=== PATIENT | female | born 1965 | race Caucasian/White ===

== ENCOUNTER → 2017-06-28 | Outpatient (CLI) | payer OTHER, SELFPAY ==
[~2017-06-28] MED LIST: ACCUNEB SO1.25 MG/1; ACETAMINOPHEN-1 EAC1 PO; ACIPHEX 20 MG T20 M1; ALBUTEROL2.5 MG/31 INH; AMOX TR-K CLV1 EAC4; AZITHROMYCIN 2250 MG; BENADRYL25 MG PO; BIRTH CONTROL; CARAFATE 1 GM TA1 GM PO; CHERATUSSIN AC118 ML; CLARITIN-D 121 EACH PO; CLARITIN10 M2; CLARITIN10 MG PO; DUONEB 2.5-0.5 M3 ML INH; FIORINAL 50-321 EACH PO; FLEXERIL PO; FUROSEMIDE 20 M20 MG PO; HYDROCODON-ACE1 EAC7 PO; HYDROCODONE-APA10 ML PO; IBUPROFEN 600600 M1 PO; IBUPROFEN 800800 M1 PO; IBUPROFEN 800800 MG PO; KLOR-CON 1010 MEQ PO; LEVOTHYROXIN0.125 M1 PO; LEVOXYL; MEDROLDOSEPACK PO; NAPROSYN500 MG PO; NORCO 5-325 TA1 EACH PO; PEPCID40 MG PO; PERCOCET 5-3251 EACH PO; PREDNISOLONE 5 M5 M1; PREDNISONE 10 M10 MG PO; PREDNISONE 20 M20 M1 PO; PREDNISONE 20 M20 MG PO; PREDNISONE50 MG PO; PREVACID15 MG PO; PRILOSEC40 MG PO; TESSALON200 MG PO; TUSSIONEX PENN473 ML PO; Tylenol; VENTOLIN HFA 1818 GM; VENTOLIN HFA 1818 GM INH; ZANTAC 150MG T150 MG PO; ZOFRAN ODT4 MG PO; ZYRTEC 10 MG TA10 MG PO
== END ==
LOC: M.ULTRA 14:15
DX: E04.1 Nontoxic single thyroid nodule (principal)

== ENCOUNTER → 2017-07-30 | Outpatient (CLI) | payer OTHER, SELFPAY | LOC: M.RAD 09:28 | DX: R05 Cough (principal); R07.89 Other chest pain ==

== ENCOUNTER → 2017-10-10 | Outpatient (CLI) | payer OTHER, SELFPAY | LOC: M.RAD 16:18 | DX: R06.02 Shortness of breath (principal) ==

== ENCOUNTER 2018-01-01 08:39 | Emergency (ER) | payer OTHER ==
[~2018-01-01] VITALS: Ht 165.1 cm; Wt 106.1 kg
[~2018-01-01 08:39] MED LIST changes: -CARAFATE 1 GM TA1 GM PO; -PREVACID15 MG PO
[2018-01-01 09:15] LABS: ABSOLUTE EOSINOPHILS 0.3 thou/uL (0.0-0.7); ABSOLUTE LYMPHOCYTES 0.8 thou/uL (0.8-5.3); ABSOLUTE MONOCYTES 0.3 thou/uL (0.0-1.2); ABSOLUTE NEUTROPHILS 1.9 thou/uL (1.6-8.1); BASOPHILS 1.2 %; EOSINOPHILS 7.8 %; HEMATOCRIT 42.2 % (37.0-47.0); HEMOGLOBIN 13.8 gm/dL (12.0-15.0); LYMPHOCYTES 24.2 %; MCH 30.2 pg (26.0-34.0); MCHC 32.7 g/dL (28.0-37.0); MCV 92.3 fL (80.0-100.0); MONOCYTES 10.1 %; MPV 9.3 fl. (7.2-11.1); NUCLEATED RBCS 0 /100WBC; PLATELET COUNT* 167 thou/uL (150-400); POLYS 56.7 %; RBC 4.57 mil/uL (4.20-5.00); RDW-CV 13.7 % (10.5-14.5); WBC 3.3 thou/uL (4.0-11.0)
[2018-01-01 09:28] LABS: APTT 26.5 Seconds (25.0-31.3)
[2018-01-01 09:37] LABS: ALBUMIN 3.7 g/dL (3.4-5.0); ALKALINE PHOSPHATASE 66 U/L (46-116); ANION GAP 5 mmol/L (7-16); BUN 14 mg/dL (7-18); CALCIUM 9.4 mg/dL (8.5-10.1); CHLORIDE 106 mmol/L (98-107); CO2 29 mmol/L (21-32); CREATININE 0.9 mg/dL (0.6-1.3); GLUCOSE 73 mg/dL (70-99); NT-PRO BRAIN NAT PEPTIDE 34 pg/mL (<300); POTASSIUM 4.3 mmol/L (3.5-5.1); SGOT 19 U/L (15-37); SGPT 23 U/L (30-65); SODIUM 140 mmol/L (136-145); TOTAL BILIRUBIN 0.2 mg/dL (<0.1-1.0); TOTAL PROTEIN 7.5 g/dL (6.4-8.2); TROPONIN-I LEVEL <0.06 ng/mL (<0.06)
[2018-01-01] MEDS ORDERED: VENTOLIN HFA 1818 GM INH (09:49)
[2018-01-01 10:00] VITALS: BP 113/68
--- NOTE | 2018-01-02 12:55 | EKG ---
[place] [address] ELECTROCARDIOGRAM REPORT Name: BRAD SANCHEZ Room: [facility]#: [id number] Admission: 01/01/18 Attend Phys: Discharge: 01/01/18 Date of : 69 Report #: [id number] THIS REPORT FOR: //name// [facility] ED Test Date: 2018-01-01 Test Time: 08:53:40 Pat Name: BRAD SANCHEZ Department: Room: Gender: F Process Controls Technician: Flako FOWLER : 1965 Requested By: Balwinder Sarkar Order Number: [id number] MD: Ian Sawyer Measurements Intervals [place] Rate: 67 P: 39 [place]: 138 QRS: 32 QRSD: 115 T: 52 QT: 369 QTc: 390 Interpretive Statements Sinus rhythm Nonspecific intraventricular conduction delay Low voltage, extremity leads Compared to ECG 10/12/2016 20:04:47 Intraventricular conduction delay now present Electronically Signed On 01-02-2018 12:54:52 CDT by Ian Sawyer [email or web address] <ELECTRONICALLY SIGNED> By: Ian Sawyer MD, [facility] 01/02/18 1254 [id number] [id number] Ian Sawyer MD, FACC /EPI
== END 2018-01-01 10:01 | disposition home or self-care (01) ==
LOC: M.ERS 08:39
PROVIDERS: Family Medicine
DX: R06.02 Shortness of breath (principal); R20.0 Anesthesia of skin; J45.909 Unspecified asthma, uncomplicated; E07.9 Disorder of thyroid, unspecified; Z90.49 Acquired absence of other specified parts of digestive tract; Z90.710 Acquired absence of both cervix and uterus; Z91.02 Food additives allergy status

== ENCOUNTER → 2018-01-01 | Outpatient (CLI) | payer OTHER | LOC: M.RAD 11:23 | DX: M47.892 Other spondylosis, cervical region (principal) ==

== ENCOUNTER 2018-01-12 15:13 | Emergency (ER) | payer OTHER ==
[~2018-01-12] VITALS: Ht 165.1 cm; Wt 104.3 kg
[2018-01-12 16:11] LABS: ABSOLUTE BASOPHILS 0.1 thou/uL (0.0-0.2); ABSOLUTE EOSINOPHILS 0.4 thou/uL (0.0-0.7); ABSOLUTE MONOCYTES 0.5 thou/uL (0.0-1.2); ABSOLUTE NEUTROPHILS 2.6 thou/uL (1.6-8.1); BASOPHILS 1.5 %; HEMATOCRIT 39.6 % (37.0-47.0); HEMOGLOBIN 13.1 gm/dL (12.0-15.0); LYMPHOCYTES 22.1 %; MCH 30.4 pg (26.0-34.0); MCHC 33.2 g/dL (28.0-37.0); MCV 91.7 fL (80.0-100.0); MONOCYTES 10.2 %; MPV 9.3 fl. (7.2-11.1); NUCLEATED RBCS 0 /100WBC; PLATELET COUNT* 166 thou/uL (150-400); POLYS 58.2 %; RBC 4.32 mil/uL (4.20-5.00); RDW-CV 13.4 % (10.5-14.5); WBC 4.4 thou/uL (4.0-11.0)
[2018-01-12 16:28] LABS: ANION GAP 3 mmol/L (7-16); BUN 14 mg/dL (7-18); CALCIUM 8.9 mg/dL (8.5-10.1); CHLORIDE 106 mmol/L (98-107); CO2 29 mmol/L (21-32); CREATININE 0.9 mg/dL (0.6-1.3); GLUCOSE 82 mg/dL (70-99); SODIUM 138 mmol/L (136-145)
[2018-01-12 16:29] LABS: APTT 26.4 Seconds (25.0-31.3); PROTIME 10.2 Seconds (9.20-11.50)
[2018-01-12 16:38] LABS: ALBUMIN 3.3 g/dL (3.4-5.0); ALKALINE PHOSPHATASE 58 U/L (46-116); LIPASE 91 U/L (73-393); NT-PRO BRAIN NAT PEPTIDE 40 pg/mL (<300); SGOT 18 U/L (15-37); SGPT 22 U/L (30-65); TOTAL BILIRUBIN 0.4 mg/dL (<0.1-1.0); TOTAL PROTEIN 6.7 g/dL (6.4-8.2); TROPONIN-I LEVEL <0.06 ng/mL (<0.06)
[2018-01-12] MEDS ORDERED: PREVACID15 MG PO (17:20)
[2018-01-12] MEDS ORDERED: CARAFATE 1 GM TA1 GM PO (17:20)
[2018-01-12 17:35] VITALS: BP 115/80
--- NOTE | 2018-01-13 19:31 | EKG ---
[place] [address] ELECTROCARDIOGRAM REPORT Name: BRAD SANCHEZ Room: [facility]#: [id number] Admission: 01/12/18 Attend Phys: Discharge: 01/12/18 Date of : [birth year] Report #: [id number] THIS REPORT FOR: //name// [facility] ED Test Date: 2018-01-12 Test Time: 15:55:14 Pat Name: BRAD SANCHEZ Department: Room: Gender: F Document Control Associate: Flako FOWLER : 1965 Requested By: Sandie New Order Number: [id number] MD: Justus Batres Measurements Intervals [place] Rate: 68 P: 41 [place]: 139 QRS: 59 QRSD: 101 T: 52 QT: 393 QTc: 418 Interpretive Statements Sinus rhythm Low voltage, precordial leads Compared to ECG 01/01/2018 08:53:40 Intraventricular conduction delay no longer present Electronically Signed On 01-13-2018 19:31:04 CDT by Justus Batres [email or web address] <ELECTRONICALLY SIGNED> By: Justus Batres MD, [facility] 01/13/18 1931 1555 1555 Justus Batres MD, FACC /EPI
== END 2018-01-12 17:36 | disposition home or self-care (01) ==
LOC: M.ERS 15:13
PROVIDERS: Personal Emergency Response Attendant
DX: K21.9 Gastro-esophageal reflux disease without esophagitis (principal); J45.909 Unspecified asthma, uncomplicated; Z90.49 Acquired absence of other specified parts of digestive tract; Z90.710 Acquired absence of both cervix and uterus; E07.9 Disorder of thyroid, unspecified; Z91.02 Food additives allergy status

== ENCOUNTER → 2018-02-25 | Outpatient (CLI) | payer OTHER ==
[~2018-02-25] MED LIST changes: +CARAFATE 1 GM TA1 GM PO; +PREVACID15 MG PO
== END ==
LOC: M.RAD 16:47
DX: M79.672 Pain in left foot (principal); J45.909 Unspecified asthma, uncomplicated

== ENCOUNTER → 2018-03-11 | Outpatient (CLI) | payer OTHER ==
--- NOTE | 2018-03-11 16:56 | 2DMMODE ---
[place] [address] 2 D/M-MODE ECHOCARDIOGRAM Name: LAURABRAD L Room: [facility]#: [id number] Admission: 03/11/18 Attend Phys: Bladimir Scales MD Discharge: Date of : 69 Date of Service: 03/11/18 1655 Report #: [id number] THIS REPORT FOR: //name// APPROVED REPORT Study performed: 03/11/2018 15:00:37 EXAM: Comprehensive 2D, Doppler, and color-flow Echocardiogram Patient Location: Out-Patient Status: routine BSA: 2.10 HR: 82 bpm Other Information Study Quality: Good Indications Dyspnea 2D Dimensions IVSd: 11.56 (7-11mm) LVOT Diam: 19.89 (18-24mm) LVDd: 38.30 mm PWd: 11.65 (7-11mm) Ascending Ao: 28.73 (22-36mm) LVDs: 25.18 (25-40mm) Aortic Root: 28.06 mm Volumes Left Atrial Volume (Systole) LA ESV Index: 10.50 mL/m2 Aortic Valve AoV Peak Eben.: 1.21 m/s AO Peak Gr.: 5.86 mmHg LVOT Max P.02 mmHg AO Mean Gr.: 2.73 mmHg LVOT Mean P.51 mmHg LVOT Max V: 1.23 m/s AO V2 VTI: 21.64 cm LVOT Mean V: 0.71 m/s MIMA (VTI): 3.20 cm2 LVOT V1 VTI: 22.32 cm Mitral Valve E/A Ratio: 1.11 MV Decel. Time: 240.35 ms MV E Max Eben.: 0.76 m/s MV PHT: 69.70 [place] [address] 2 D/M-MODE ECHOCARDIOGRAM Name: BRAD SANCHEZ Room: [facility]#: [id number] Admission: 03/11/18 Attend Phys: Bladimir Scales MD Discharge: Date of : 69 Date of Service: 03/11/18 1655 Report #: [id number] MVA (PHT): 3.16 cm2 TDI E/Lateral E': 6.33 E/Medial E': 6.91 Medial E' Eben.: 0.11 m/s Lateral E' Eben.: 0.12 m/s Pulmonary Valve PV Peak Eben.: 1.09 m/s PV Peak Gr.: 4.76 mmHg Left Ventricle The left ventricle is normal size. There is normal LV segmental wall motion. There is normal left ventricular wall thickness. Left ventricular systolic function is normal. The left ventricular ejection fraction is within the normal range. LVEF is 55-60%. The left ventricular diastolic function is normal. Right Ventricle The right ventricle is normal size. The right ventricular systolic function is normal. Atria The left atrium size is normal. The right atrium size is normal. Aortic Valve The aortic valve is normal in structure. No aortic regurgitation is present. There is no aortic valvular stenosis. Mitral Valve The mitral valve is normal in structure. There is no mitral valve regurgitation noted. No evidence of mitral valve stenosis. Tricuspid Valve The tricuspid valve is normal in structure. There is no tricuspid valve regurgitation noted. Pulmonic Valve The pulmonary valve is normal in structure. There is no pulmonic valvular regurgitation. Great Vessels The aortic root is normal in size. IVC is normal in size and collapses >50% with inspiration[place] [address] 2 D/M-MODE ECHOCARDIOGRAM Name: BRAD SANCHEZ [id number] Admission: 03/11/18 Attend Phys: Bladimir Scales MD Discharge: Date of : 69 Date of Service: 03/11/18 1655 Report #: [id number] There is no pericardial effusion. <Conclusion> LVEF is 55-60%. There is normal LV segmental wall motion. No aortic regurgitation is present. There is no aortic valvular stenosis. No evidence of mitral valve stenosis. There is no mitral valve regurgitation noted. <ELECTRONICALLY SIGNED> By: Nishant Barnes MD, FACC 03/11/181654 54 54 Nishant Barnes MD, FACC /INF
== END ==
LOC: M.CRD 14:49
DX: R06.00 Dyspnea, unspecified (principal)

== ENCOUNTER → 2018-09-03 | Outpatient (CLI) | payer OTHER | LOC: M.ULTRA 13:53 | DX: R60.9 Edema, unspecified (principal) ==

== ENCOUNTER 2018-09-14 11:14 | Emergency (ER) | payer OTHER ==
[~2018-09-14] VITALS: Ht 165.1 cm; Wt 99.8 kg
[2018-09-14] MEDS ORDERED: TESSALON PERLE100 MG PO (11:40)
[2018-09-14] MEDS ORDERED: PREDNISONE 20 M20 MG PO (11:40)
[2018-09-14] MEDS ORDERED: NEBULIZER MISCELL (11:40)
[2018-09-14] MEDS ORDERED: ALBUTEROL2.5 MG/31 INH (11:40)
[2018-09-14 12:11] VITALS: BP 130/78
== END 2018-09-14 12:13 | disposition home or self-care (01) ==
LOC: M.ERS 11:14
DX: J20.8 Acute bronchitis due to other specified organisms (principal); B97.89 Other viral agents as the cause of diseases classified elsewhere; J45.909 Unspecified asthma, uncomplicated; Z90.49 Acquired absence of other specified parts of digestive tract; Z90.710 Acquired absence of both cervix and uterus; Z88.8 Allergy status to other drugs, medicaments and biological substances; Z91.018 Allergy to other foods

== ENCOUNTER 2018-11-04 15:31 | Emergency (ER) | payer OTHER ==
[~2018-11-04] VITALS: Ht 165.1 cm; Wt 81.7 kg
[~2018-11-04 15:31] MED LIST changes: +NEBULIZER MISCELL; +TESSALON PERLE100 MG PO
[2018-11-04 15:55] LABS: URINE BILIRUBIN NEGATIVE (Negative); URINE BLOOD TRACE (Negative); URINE CLARITY CLEAR; URINE COLOR YELLOW; URINE GLUCOSE-RANDOM NEGATIVE (Negative); URINE KETONES NEGATIVE (Negative); URINE LEUKOCYTES-REFLEX NEGATIVE (Negative); URINE NITRITE-REFLEX NEGATIVE (Negative); URINE PROTEIN NEGATIVE (Negative); URINE SPECIFIC GRAVITY 1.025 (1.005-1.030); URINE UROBILINOGEN 0.2 E.U./dl (0.2-1.0)
[2018-11-04 16:23] LABS: ABSOLUTE BASOPHILS 0.1 thou/uL (0.0-0.2); ABSOLUTE EOSINOPHILS 0.2 thou/uL (0.0-0.7); ABSOLUTE LYMPHOCYTES 1.1 thou/uL (0.8-5.3); ABSOLUTE MONOCYTES 0.5 thou/uL (0.0-1.2); ABSOLUTE NEUTROPHILS 2.5 thou/uL (1.6-8.1); BASOPHILS 1.8 %; EOSINOPHILS 3.6 %; HEMATOCRIT 40.7 % (37.0-47.0); HEMOGLOBIN 13.8 gm/dL (12.0-15.0); LYMPHOCYTES 24.5 %; MCH 30.8 pg (26.0-34.0); MCHC 33.9 g/dL (28.0-37.0); MCV 90.9 fL (80.0-100.0); MPV 9.4 fl. (7.2-11.1); NUCLEATED RBCS 0 /100WBC; PLATELET COUNT* 181 thou/uL (150-400); POLYS 58.1 %; RBC 4.48 mil/uL (4.20-5.00); RDW-CV 13.8 % (10.5-14.5); WBC 4.3 thou/uL (4.0-11.0)
[2018-11-04 16:35] LABS: CALCIUM 8.8 mg/dL (8.5-10.1); CREATININE 0.9 mg/dL (0.6-1.3); POTASSIUM 3.7 mmol/L (3.5-5.1)
[2018-11-04 16:41] LABS: ALBUMIN 3.4 g/dL (3.4-5.0); TOTAL BILIRUBIN 0.2 mg/dL (<0.1-1.0); TOTAL PROTEIN 7.1 g/dL (6.4-8.2)
[2018-11-04] MEDS ORDERED: OXYBUTYNIN 5 MG5 M2 PO (18:33)
[2018-11-04 18:42] VITALS: BP 123/77
== END 2018-11-04 18:43 | disposition home or self-care (01) ==
LOC: M.ERS 15:31
PROVIDERS: Nurse Practitioner Family
DX: N32.81 Overactive bladder (principal); R31.9 Hematuria, unspecified; R30.0 Dysuria; J45.909 Unspecified asthma, uncomplicated; Z90.49 Acquired absence of other specified parts of digestive tract; Z90.710 Acquired absence of both cervix and uterus; Z91.02 Food additives allergy status

== ENCOUNTER → 2018-11-25 | Outpatient (CLI) | payer OTHER ==
[~2018-11-25] MED LIST changes: +OXYBUTYNIN 5 MG5 M2 PO
== END ==
LOC: M.ULTRA 11:00
DX: K42.9 Umbilical hernia without obstruction or gangrene (principal); Z90.49 Acquired absence of other specified parts of digestive tract

== ENCOUNTER → 2018-12-05 | Outpatient (CLI) | payer OTHER, SELFPAY ==
[~2018-12-05] MED LIST changes: +BREO ELLIPTA 11 EACH; +ERYTHROMYCIN E3.5 G2 INTRAOCULR; +TESSALON PERLE100 MG; +TUSSIONEX PENN115 ML PO
== END ==
LOC: M.NUC 11-26 08:22
DX: M99.9 Biomechanical lesion, unspecified (principal)

== ENCOUNTER 2018-12-07 03:02 | Emergency (ER) | payer OTHER ==
[~2018-12-07] VITALS: Ht 162.6 cm; Wt 90.7 kg
[~2018-12-07 03:02] MED LIST changes: -BREO ELLIPTA 11 EACH; -ERYTHROMYCIN E3.5 G2 INTRAOCULR; -TESSALON PERLE100 MG; -TUSSIONEX PENN115 ML PO
[2018-12-07] MEDS ORDERED: BREO ELLIPTA 11 EACH (03:28)
[2018-12-07] MEDS ORDERED: TESSALON PERLE100 MG (03:29)
[2018-12-07] MEDS ORDERED: TUSSIONEX PENN115 ML PO (03:57)
[2018-12-07 04:05] VITALS: BP 122/83
[2018-12-07] MEDS ORDERED: ERYTHROMYCIN E3.5 G2 INTRAOCULR (04:07)
== END 2018-12-07 04:05 | disposition home or self-care (01) ==
LOC: M.ERS 03:02
DX: J06.9 Acute upper respiratory infection, unspecified (principal); J45.909 Unspecified asthma, uncomplicated; Z88.8 Allergy status to other drugs, medicaments and biological substances; Z91.018 Allergy to other foods; Z90.49 Acquired absence of other specified parts of digestive tract; Z90.710 Acquired absence of both cervix and uterus

== ENCOUNTER 2019-02-21 11:58 | Emergency (ER) | payer OTHER ==
[~2019-02-21] VITALS: Ht 162.6 cm; Wt 104.3 kg
[~2019-02-21 11:58] MED LIST changes: +BREO ELLIPTA 11 EACH; +ERYTHROMYCIN E3.5 G2 INTRAOCULR; +TESSALON PERLE100 MG; +TUSSIONEX PENN115 ML PO
[2019-02-21] MEDS ORDERED: SYNTHROID50 MCG PO (12:13)
[2019-02-21 12:22] LABS: URINE BILIRUBIN NEGATIVE (Negative); URINE BLOOD 3+ (Negative); URINE CLARITY CLEAR; URINE COLOR YELLOW; URINE GLUCOSE-RANDOM NEGATIVE (Negative); URINE KETONES NEGATIVE (Negative); URINE NITRITE-REFLEX NEGATIVE (Negative); URINE PROTEIN 2+ (Negative); URINE SPECIFIC GRAVITY >= 1.030 (1.005-1.030); URINE UROBILINOGEN 0.2 E.U./dl (0.2-1.0)
[2019-02-21 12:24] LABS: URINE LEUKOCYTES-REFLEX 2+ (Negative)
[2019-02-21 12:28] LABS: SQUAMOUS 0-3 Few /LPF (0-3)
[2019-02-21 12:29] LABS: CASTS None Seen /LPF (None Seen); CRYSTALS None Seen /LPF (None Seen); MUCUS None Seen strn/LPF (None Seen)
[2019-02-21] MEDS ORDERED: MACRODANTIN100 MG PO (12:46)
[2019-02-21 12:53] VITALS: BP 112/70
== END 2019-02-21 12:54 | disposition home or self-care (01) ==
LOC: M.ERS 11:58
PROVIDERS: Nurse Practitioner Family
DX: N39.0 Urinary tract infection, site not specified (principal); J45.909 Unspecified asthma, uncomplicated; Z91.018 Allergy to other foods; Z90.49 Acquired absence of other specified parts of digestive tract; Z90.710 Acquired absence of both cervix and uterus

== ENCOUNTER → 2019-03-23 | Outpatient (CLI) | payer OTHER, SELFPAY ==
[~2019-03-23] MED LIST changes: +BREO ELLIPTA 11 EACH INH; +MACRODANTIN100 MG PO; +SYNTHROID50 MCG PO
== END ==
LOC: M.CT 07:54
DX: K42.9 Umbilical hernia without obstruction or gangrene (principal); K57.30 Diverticulosis of large intestine without perforation or abscess without bleeding; R31.0 Gross hematuria; Z90.49 Acquired absence of other specified parts of digestive tract

== ENCOUNTER 2019-04-20 11:44 | Emergency (ER) | payer OTHER ==
[~2019-04-20] VITALS: Ht 165.1 cm; Wt 102.1 kg
[~2019-04-20 11:44] MED LIST changes: -BREO ELLIPTA 11 EACH INH
[2019-04-20] MEDS ORDERED: BREO ELLIPTA 11 EACH INH (12:13)
[2019-04-20] MEDS ORDERED: VENTOLIN HFA 1818 GM INH (12:13)
[2019-04-20 12:55] LABS: INFLUENZA A ANTIGEN Negative (Negative); INFLUENZA B ANTIGEN Negative (Negative)
[2019-04-20 13:35] LABS: ABSOLUTE EOSINOPHILS 0.1 thou/uL (0.0-0.7); ABSOLUTE LYMPHOCYTES 0.8 thou/uL (0.8-5.3); ABSOLUTE MONOCYTES 0.3 thou/uL (0.0-1.2); ABSOLUTE NEUTROPHILS 2.6 thou/uL (1.6-8.1); EOSINOPHILS 2.3 %; HEMOGLOBIN 13.8 gm/dL (12.0-15.0); LYMPHOCYTES 20.4 %; MCH 30.5 pg (26.0-34.0); MCHC 33.6 g/dL (28.0-37.0); MCV 90.7 fL (80.0-100.0); MONOCYTES 8.4 %; MPV 8.9 fl. (7.2-11.1); NUCLEATED RBCS 0 /100WBC; PLATELET COUNT* 180 thou/uL (150-400); POLYS 67.9 %; RBC 4.52 mil/uL (4.20-5.00); RDW-CV 13.7 % (10.5-14.5); WBC 3.8 thou/uL (4.0-11.0)
[2019-04-20 13:44] LABS: CALCIUM 9.4 mg/dL (8.5-10.1); CREATININE 0.8 mg/dL (0.6-1.3); POTASSIUM 4.2 mmol/L (3.5-5.1)
[2019-04-20 14:01] LABS: ALBUMIN 3.6 g/dL (3.4-5.0); TOTAL BILIRUBIN 0.3 mg/dL (<0.1-1.0); TOTAL PROTEIN 7.4 g/dL (6.4-8.2)
[2019-04-20] MEDS ORDERED: MEDROLDOSEPACK PO (14:09)
[2019-04-20] MEDS ORDERED: TESSALON PERLE100 MG PO ×2 (14:09→14:24)
[2019-04-20 14:27] VITALS: BP 112/64
--- NOTE | 2019-04-20 18:09 | EKG ---
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 04/20/19 1809 1225 1225 Bladimir Scales MD, FACC /EPI
== END 2019-04-20 14:28 | disposition home or self-care (01) ==
LOC: M.ERS 11:44
PROVIDERS: Nurse Practitioner Family
DX: J20.9 Acute bronchitis, unspecified (principal); J45.909 Unspecified asthma, uncomplicated; E03.9 Hypothyroidism, unspecified; Z90.49 Acquired absence of other specified parts of digestive tract; Z90.710 Acquired absence of both cervix and uterus; Z91.018 Allergy to other foods

== ENCOUNTER → 2019-04-23 | Outpatient (CLI) | payer OTHER ==
[~2019-04-23] MED LIST changes: +BREO ELLIPTA 11 EACH INH
== END ==
LOC: M.RAD 12:01
DX: R06.02 Shortness of breath (principal)

== ENCOUNTER 2019-05-25 15:43 | Emergency (ER) | payer OTHER ==
[~2019-05-25] VITALS: Ht 162.6 cm; Wt 99.8 kg
[2019-05-25] MEDS ORDERED: DORYX MPC120 MG PO (16:09)
[2019-05-25 18:05] LABS: HEMATOCRIT 39.8 % (37.0-47.0); HEMOGLOBIN 13.4 gm/dL (12.0-15.0); MCH 30.5 pg (26.0-34.0); MCHC 33.8 g/dL (28.0-37.0); MCV 90.2 fL (80.0-100.0); MPV 9.1 fl. (7.2-11.1); RBC 4.41 mil/uL (4.20-5.00); RDW-CV 13.6 % (10.5-14.5); WBC 3.9 thou/uL (4.0-11.0)
[2019-05-25 18:14] LABS: CALCIUM 9.2 mg/dL (8.5-10.1); CREATININE 0.8 mg/dL (0.6-1.3); POTASSIUM 4.1 mmol/L (3.5-5.1)
[2019-05-25] MEDS ORDERED: NORCO 5-325 TA1 EAC1 PO (18:26)
[2019-05-25 18:44] VITALS: BP 126/72
--- NOTE | 2019-05-26 11:00 | EKG ---
[place] [address] ELECTROCARDIOGRAM REPORT Name: BRAD SANCHEZ Room: [facility]#: [id number] Admission: 05/25/19 Attend Phys: Discharge: 05/25/19 Date of : [birth year] Report #: [id number] THIS REPORT FOR: //name// [facility] ED Test Date: 2019-05-25 Test Time: 15:53:07 Pat Name: BRAD SANCHEZ Department: Room: Gender: F Ski Patroller: MATT : 1965 Requested By: Linnea Holcomb Order Number: [id number] MD: Justus Batres Measurements Intervals [place] Rate: 88 P: 61 [place]: 129 QRS: -71 QRSD: 96 T: 39 QT: 363 QTc: 440 Interpretive Statements Sinus rhythm Ventricular premature complex Low voltage, extremity and precordial leads Baseline wander in lead(s) II,III,aVR,aVF,V6 Compared to ECG 04/20/2019 12:25:08 Ventricular premature complex(es) now present Electronically Signed On 05-26-2019 11:00:40 CLINICAL NURSING COORDINATOR by Justus Batres [email or web address] <ELECTRONICALLY SIGNED> By: Justus Batres MD, FACC 05/26/19 1100 1553 1553 Justus Batres MD, FAC /EPI
--- NOTE | 2019-05-27 16:53 | EKG ---
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: : 1965 Requested By: Yrn Apple Order Number: [id number] MD: Justus Batres Measurements Intervals [place] Rate: 69 P: 6 NM: 127 QRS: 59 QRSD: 94 T: 34 QT: 401 QTc: 430 Interpretive Statements Sinus rhythm Borderline low voltage, extremity leads Compared to ECG 05/25/2019 15:53:07 Ventricular premature complex(es) no longer present Electronically Signed On 05-27-2019 16:53:01 CHEMISTRY INSTRUCTOR by Justus Batres [email or web address] <ELECTRONICALLY SIGNED> By: Justus Batres MD, [facility] 05/27/19 1653 [id number] Justus Batres MD, FACC /EPI
== END 2019-05-25 18:45 | disposition home or self-care (01) ==
LOC: M.ERS 15:43
PROVIDERS: Emergency Medicine Emergency Medical Services
DX: M94.0 Chondrocostal junction syndrome [Tietze] (principal); R09.1 Pleurisy; E03.9 Hypothyroidism, unspecified; J45.909 Unspecified asthma, uncomplicated; Z90.49 Acquired absence of other specified parts of digestive tract; Z98.890 Other specified postprocedural states; Z90.710 Acquired absence of both cervix and uterus; Z91.018 Allergy to other foods

== ENCOUNTER 2019-09-02 09:33 | Emergency (ER) | payer OTHER ==
[~2019-09-02] VITALS: Ht 162.6 cm; Wt 99.8 kg
[~2019-09-02 09:33] MED LIST changes: +DORYX MPC120 MG PO; +NORCO 5-325 TA1 EAC1 PO
[2019-09-02] MEDS ORDERED: BACTRIM DS TAB1 EAC1 PO (09:47)
[2019-09-02 09:57] LABS: ABSOLUTE EOSINOPHILS 0.1 thou/uL (0.0-0.7); ABSOLUTE LYMPHOCYTES 0.9 thou/uL (0.8-5.3); ABSOLUTE MONOCYTES 0.3 thou/uL (0.0-1.2); ABSOLUTE NEUTROPHILS 2.1 thou/uL (1.6-8.1); EOSINOPHILS 4.2 %; HEMATOCRIT 40.1 % (37.0-47.0); HEMOGLOBIN 13.7 gm/dL (12.0-15.0); LYMPHOCYTES 24.5 %; MCH 30.7 pg (26.0-34.0); MONOCYTES 9.1 %; MPV 9.2 fl. (7.2-11.1); NUCLEATED RBCS 0 /100WBC; PLATELET COUNT* 169 thou/uL (150-400); POLYS 61.2 %; RBC 4.46 mil/uL (4.20-5.00); RDW-CV 13.4 % (10.5-14.5); WBC 3.5 thou/uL (4.0-11.0)
[2019-09-02 10:08] LABS: CALCIUM 8.9 mg/dL (8.5-10.1); CREATININE 1.1 mg/dL (0.6-1.3); POTASSIUM 4.4 mmol/L (3.5-5.1)
[2019-09-02 10:15] LABS: APTT 27.6 Seconds (25.0-31.3); PROTIME 10.6 Seconds (9.20-11.50)
[2019-09-02 10:19] LABS: ALBUMIN 3.7 g/dL (3.4-5.0); TOTAL BILIRUBIN 0.2 mg/dL (<0.1-1.0); TOTAL PROTEIN 7.6 g/dL (6.4-8.2)
[2019-09-02 12:21] VITALS: BP 108/66
--- NOTE | 2019-09-02 16:44 | EKG ---
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
== END 2019-09-02 12:22 | disposition home or self-care (01) ==
LOC: M.ERS 09:33
PROVIDERS: Family Medicine
DX: R07.89 Other chest pain (principal); J45.909 Unspecified asthma, uncomplicated; Z88.8 Allergy status to other drugs, medicaments and biological substances; Z91.018 Allergy to other foods; Z90.710 Acquired absence of both cervix and uterus; Z90.49 Acquired absence of other specified parts of digestive tract

== ENCOUNTER → 2019-12-07 | Outpatient (CLI) | payer OTHER, SELFPAY ==
[~2019-12-07] MED LIST changes: +BACTRIM DS TAB1 EAC1 PO
== END ==
LOC: M.RAD 13:17
PROVIDERS: ATTEND Nurse Practitioner Family
DX: N64.4 Mastodynia (principal)

== ENCOUNTER → 2019-12-11 | Outpatient (CLI) | payer OTHER, SELFPAY | LOC: M.RAD 15:19 | PROVIDERS: ATTEND Family Medicine | DX: M89.8X1 Other specified disorders of bone, shoulder (principal); M25.512 Pain in left shoulder; R07.81 Pleurodynia ==

== ENCOUNTER 2020-10-17 16:13 | Emergency (ER) | payer OTHER ==
[~2020-10-17] VITALS: Ht 162.6 cm; Wt 108.9 kg
[2020-10-17] MEDS ORDERED: IBUPROFEN 800800 M1 PO (19:47)
[2020-10-17 19:54] VITALS: BP 122/64
== END 2020-10-17 19:54 | disposition home or self-care (01) ==
LOC: M.ERS 16:13
DX: M25.461 Effusion, right knee (principal); M25.561 Pain in right knee; J45.909 Unspecified asthma, uncomplicated; Z88.8 Allergy status to other drugs, medicaments and biological substances; Z91.018 Allergy to other foods; Z90.49 Acquired absence of other specified parts of digestive tract; Z90.710 Acquired absence of both cervix and uterus

== ENCOUNTER → 2021-06-19 | Outpatient (CLI) | payer OTHER | LOC: M.RAD 12:36 | PROVIDERS: ATTEND Nurse Practitioner Family | DX: R92.2 Inconclusive mammogram (principal); N64.4 Mastodynia; N64.89 Other specified disorders of breast ==